=== PATIENT | male | born 1995 | race African-American/Black ===

== ENCOUNTER 2025-01-19 22:27 | Emergency (ER) | payer MEDICAID ==
[~2025-01-19] VITALS: Ht 188 cm; Wt 63.6 kg
[~2025-01-19 22:27] MED LIST: ALBU8.5H3 IH
[2025-01-19 22:33] VITALS: BP 105/69; PULSE 73; RESP 17; TEMP 98.6; O2SAT 99
[2025-01-19 23:21] LABS: PLATELET COUNT (AUTO) 216 K/uL (150-450); RED BLOOD CELL COUNT(AUTO) 4.68 MIL/uL (4.50-5.90); RED CELL DISTRIBUTION WIDTH 12.8 % (11.5-14.5); WHITE BLOOD COUNT (AUTO) 4.7 K/uL (4.5-11.0)
[2025-01-19 23:26] LABS: CALCIUM, TOTAL 8.4 mg/dL (8.8-10.5); CREATININE 0.85 mg/dL (0.60-1.30); GLOMERULAR FILTR. RATE CALC > 60 mL/min (>60); GLUCOSE,RANDOM 95 mg/dL (70-110); SODIUM SERUM 144 mmol/L (136-145); UREA NITROGEN, BLOOD 11 mg/dL (7-18)
[2025-01-20] MEDS ORDERED: OLAN10TA74 PO (03:53)
== END 2025-01-20 05:12 | disposition home or self-care (01) ==
LOC: EMS 22:27
DX: F20.9 Schizophrenia, unspecified (principal); J45.909 Unspecified asthma, uncomplicated; F12.90 Cannabis use, unspecified, uncomplicated; Z79.899 Other long term (current) drug therapy
CPT/HCPCS: 99284; 80048; 85025; 36415; G0480